=== PATIENT | female | born 1990 | race Two or more races ===

== ENCOUNTER 2016-09-19 13:26 | Emergency (ER) | payer OTHER ==
--- NOTE | 2016-09-19 14:09 | ER Document Report ---
ED Medical Screen (RME) - General Stated Complaint: BACK PAIN Time seen by provider: 14:08 Mode of Arrival: Ambulatory Information source: Patient Notes: 26-year-old female presents to ED for back pain with pain with urination foul smell to urine stasis most likely pneumonia. States his inguinal for a couple days. She also has some pelvic pain. Patient states she has a vaginal itch with no discharge. I have greeted and performed a rapid initial assessment of this patient. A comprehensive ED assessment and evaluation of the patient, analysis of test results and completion of medical decision making process will be conducted by an additional ED providers. TRAVEL OUTSIDE OF THE [place] IN LAST 30 DAYS: No - Related Data Allergies/Adverse Reactions: No Known Allergies Allergy (Verified 10/01/15 17:46) Past Medical History Past Surgical History: Reports: Hx Appendectomy - Immunizations Hx Diphtheria, Pertussis, Tetanus Vaccination: Yes
[2016-09-19] MEDS ORDERED: ACETAMINOPHEN 325 MG TABLET PO ONE (14:21)
[2016-09-19 15:08] LABS: APPEARANCE,URINE CLEAR; BILIRUBIN,URINE NEGATIVE (NEGATIVE); GLUCOSE, URINE NEGATIVE (NEGATIVE); KETONES,URINE NEGATIVE (NEGATIVE); LEUKOCYTE ESTERASE,URINE SMALL (NEGATIVE); NITRITE,URINE NEGATIVE (NEGATIVE); PROTEIN,URINE NEGATIVE (NEGATIVE); URINE SPECIFIC GRAVITY 1.015; UROBILINOGEN,URINE NEGATIVE mg/dL (<2.0)
[2016-09-19 16:38] LABS: CHLAM PCR NOT DETECTED (NOT DETECT)
--- NOTE | 2016-09-19 18:34 | ER Document Report ---
ED General - General Chief Complaint: Back Pain Stated Complaint: Dysuria Mode of Arrival: Ambulatory Notes: Patient is a 26-year-old female who presents with 2 days of vaginal itching, dysuria and suprapubic pain. She apparently complained of low back pain in triage but denies this complaint to me. States this feels similar when she's had urinary tract infections in the past. She has not seen her primary care doctor regarding today's concerns. Nothing improves or worsens her discomfort which she does describe as a constant, dull, throbbing pain in her vaginal area as well as her suprapubic region. Worsened with urination. Nothing improves the pain. She denies any associated constitutional symptoms or fever. TRAVEL OUTSIDE OF THE [place] IN LAST 30 DAYS: No - Related Data Allergies/Adverse Reactions: No Known Allergies Allergy (Verified 09/19/16 14:09) Past Medical History - General Information source: Patient - Social History Smoking Status: Never Smoker Chew tobacco use (# tins/day): No Frequency of alcohol use: None Drug Abuse: None Lives with: Spouse/Significant other Family History: Reviewed & Not Pertinent Patient has suicidal ideation: No Patient has homicidal ideation: No Renal/ Medical History: Denies: Hx Peritoneal Dialysis Past Surgical History: Reports: Hx Appendectomy - Immunizations Hx Diphtheria, Pertussis, Tetanus Vaccination: Yes Review of Systems - Review of Systems Notes: Constitutional: Negative for fever. HENT: Negative for sore throat. Eyes: Negative for visual changes. Cardiovascular: Negative for chest pain. Respiratory: Negative for shortness of breath. Gastrointestinal: Positive for abdominal pain, negative for vomiting or diarrhea. Genitourinary: Positive for dysuria. Musculoskeletal: Negative for back pain. Skin: Negative for rash. Neurological: Negative for headaches, weakness or numbness. 10 point ROS negative except as marked above and in HPI. Physical Exam - Vital signs Vitals: Temp Pulse Resp BP Pulse Ox 98.3 F 66 18 123/74 99 09/19/16 14:08 09/19/16 14:08 09/19/16 14:08 09/19/16 14:08 09/19/16 14:08 Interpretation: Normal Notes: PHYSICAL EXAMINATION: GENERAL: Well-appearing, well-nourished and in no acute distress. HEAD: Atraumatic, normocephalic. EYES: Pupils equal round and reactive to light, extraocular movements intact, sclera anicteric, conjunctiva are normal. ENT: nares patent, oropharynx clear without exudates. Moist mucous membranes. NECK: Normal range of motion, supple without lymphadenopathy LUNGS: Breath sounds clear to auscultation bilaterally and equal. No wheezes rales or rhonchi. HEART: Regular rate and rhythm without murmurs ABDOMEN: Soft, nontender, normoactive bowel sounds. No guarding, no rebound. No masses appreciated. EXTREMITIES: Normal range of motion, no pitting or edema. No cyanosis. NEUROLOGICAL: No focal neurological deficits. Moves all extremities spontaneously and on command. PSYCH: Normal mood, normal affect. SKIN: Warm, Dry, normal turgor, no rashes or lesions noted. Course - Re-evaluation Re-evalutation: 09/19/16 18:33 Patient presents with symptoms consistent with an acute cystitis. Vitals wnl. No history of fever, flank pain, or constitution symptoms to suggest ascending infection at this time. I'll patient complained of back pain in triage, she denies this complaint to me. Patient is well in appearance, tolerating oral intake without difficulty. No focal abdominal tenderness to suggest acute appendicitis, biliary pathology, acute pancreatitis, tubo-ovarian abscesses, or pelvic inflammatory disease. Patient will be started on antibiotics at this time. A culture has been sent. At this time will discharge with return precautions and follow-up recommendations. Verbal discharge instructions given a the bedside and opportunity for questions given. Medication warnings reviewed. Patient is in agreement with this plan and has verbalized understanding of return precautions and the need for primary care follow-up in the next 24-72 hours. - Vital Signs Vital signs: Temp Pulse Resp BP Pulse Ox 98.3 F 66 16 109/47 L 97 09/19/16 14:08 09/19/16 19:32 09/19/16 19:32 09/19/16 19:32 09/19/16 19:32 - Laboratory Laboratory results interpreted by me: 09/19/16 14:45 Ur Leukocyte Esterase SMALL H Discharge - Discharge Clinical Impression: UTI (urinary tract infection) Qualifiers: Urinary tract infection type: acute cystitis Hematuria presence: without hematuria Qualified Code(s): N30.00 - Acute cystitis without hematuria Condition: Good Disposition: HOME, SELF-CARE Additional Instructions: Your urine shows findings consistent with a urinary tract infection. Please take all the antibiotics as directed even if your symptoms have improved. Please follow-up with your primary care physician as needed. Return to emergency room if you develop fever >101F, persistent vomiting, become lethargic , have severe pain in your sides, or any other symptoms that are concerning to you. Prescriptions: Cephalexin Monohydrate [Keflex 500 mg Capsule] 500 mg PO QID #20 capsule Fluconazole [Diflucan] 150 mg PO ONCE PRN #1 tablet PRN Reason:
[2016-09-19 21:06] VITALS: BP 109/47
== END 2016-09-19 19:32 | disposition home or self-care (01) ==
LOC: ER 13:26
DX: N30.00 Acute cystitis without hematuria (principal); M54.9 Dorsalgia, unspecified; R30.0 Dysuria; R10.9 Unspecified abdominal pain; M54.5 Low back pain
CPT/HCPCS: 36415; 81001; 87086; 87088; 87186; 87491; 87591; 99283

== ENCOUNTER 2016-11-20 13:50 | Emergency (ER) | payer OTHER ==
--- NOTE | 2016-11-20 15:16 | ER Document Report ---
ED Medical Screen (RME) - General Chief Complaint: Vaginal Discharge Stated Complaint: VAGINAL DISCOMFORT Time Seen by Provider: 11/20/16 15:09 Notes: The patient is a 26-year-old female, , presents with vaginal spotting and pelvic cramping since her Implanon was placed 6 weeks ago at [facility]. Because of the spotting, she is having irritation from her pads around the vagina. She would also like to be tested for STDs and to have her Implanon removed today. PE: NAD. Abdomen soft and NT. I have greeted and performed a rapid initial assessment of this patient. A comprehensive ED assessment and evaluation of the patient, analysis of test results and completion of the medical decision making process will be conducted by additional ED providers. TRAVEL OUTSIDE OF THE [place] IN LAST 30 DAYS: No - Related Data Allergies/Adverse Reactions: No Known Allergies Allergy (Verified 11/20/16 14:09) Past Medical History Renal/ Medical History: Denies: Hx Peritoneal Dialysis Past Surgical History: Reports: Hx Appendectomy - Immunizations Hx Diphtheria, Pertussis, Tetanus Vaccination: Yes Physical Exam - Vital signs Vitals: Temp Pulse Resp BP Pulse Ox 98.0 F 76 16 111/71 100 11/20/16 14:08 11/20/16 14:08 11/20/16 14:08 11/20/16 14:08 11/20/16 14:08 Course - Vital Signs Vital signs: Temp Pulse Resp BP Pulse Ox 98.0 F 76 16 111/71 100 11/20/16 14:08 11/20/16 14:08 11/20/16 14:08 11/20/16 14:08 11/20/16 14:08
[2016-11-20 15:31] LABS: APPEARANCE,URINE CLEAR; BILIRUBIN,URINE NEGATIVE (NEGATIVE); GLUCOSE, URINE NEGATIVE (NEGATIVE); KETONES,URINE NEGATIVE (NEGATIVE); LEUKOCYTE ESTERASE,URINE NEGATIVE (NEGATIVE); NITRITE,URINE NEGATIVE (NEGATIVE); PROTEIN,URINE NEGATIVE (NEGATIVE); URINE SPECIFIC GRAVITY 1.008; UROBILINOGEN,URINE NEGATIVE mg/dL (<2.0)
[2016-11-20] MEDS ORDERED: IBUPROFEN 600 MG TABLET PO ONE (15:34)
--- NOTE | 2016-11-20 16:36 | ER Document Report ---
ED GI/ - General Mode of Arrival: Ambulatory Information source: Patient TRAVEL OUTSIDE OF THE [place] IN LAST 30 DAYS: No - HPI Patient complains to provider of: Vaginal pain Associated symptoms: Other - See above <MELVIN TAPIA - Last Filed: 11/20/16 17:51> <ROBERT ORTEGA - Last Filed: 11/20/16 21:59> - General Chief Complaint: Vaginal Pain Stated Complaint: VAGINAL DISCOMFORT Time Seen by Provider: 11/20/16 15:09 Notes: Patient is a 26 year old female who presents to the emergency department complaining of vaginal discomfort for the past 3 weeks. Patient also complains of itching, redness, and bumps to the area as well as spotting for the past month after having a nexplanon implanted. Patient reports she has been sexually active and has to wear panty liners because of the spotting. Patient also complains of abdominal cramps and lower back pain since the nexplanon as well as some burning with urination. Patient denies having cut herself shaving. PCP: Luis Fernando (MELVIN TAPIA) - Related Data Allergies/Adverse Reactions: No Known Allergies Allergy (Verified 11/20/16 14:09) Past Medical History - General Information source: Patient - Social History Smoking Status: Never Smoker Frequency of alcohol use: None Family History: Reviewed & Not Pertinent Patient has suicidal ideation: No Patient has homicidal ideation: No Renal/ Medical History: Denies: Hx Peritoneal Dialysis Past Surgical History: Reports: Hx Appendectomy - Immunizations Hx Diphtheria, Pertussis, Tetanus Vaccination: Yes <MELVIN TAPIA - Last Filed: 11/20/16 17:51> Review of Systems - Review of Systems Constitutional: No symptoms reported EENT: No symptoms reported Cardiovascular: No symptoms reported Respiratory: No symptoms reported Gastrointestinal: See HPI, Abdominal pain Genitourinary: See HPI, Burning Female Genitourinary: See HPI, Irregular period, Other - vaginal pain/discomfort Musculoskeletal: See HPI, Back pain Skin: No symptoms reported Hematologic/Lymphatic: No symptoms reported Neurological/Psychological: No symptoms reported -: Yes All other systems reviewed and negative <MELVIN TAPIA - Last Filed: 11/20/16 17:51> Physical Exam - Vital signs Interpretation: Normal - General General appearance: Appears well, Alert - HEENT Head: Normocephalic, Atraumatic - Respiratory Respiratory status: No respiratory distress - Abdominal Inspection: Normal Distension: No distension Bowel sounds: Normal Tenderness: Nontender Organomegaly: No organomegaly - Genitourinary External exam: Normal - but for some skin irritation on buttocks Speculum exam: Vaginal discharge - dark brown, no bright red blood - Extremities General upper extremity: Normal inspection General lower extremity: Normal inspection - Neurological Neuro grossly intact: Yes Cognition: Normal Orientation: AAOx4 [place] Coma Scale Eye Opening: Spontaneous [place] Coma Scale Verbal: Oriented [place] Coma Scale Motor: Obeys Commands Sar[place] Coma Scale Total: 15 Speech: Normal - Psychological Associated symptoms: Normal affect, Normal mood - Skin Skin Temperature: Warm Skin Moisture: Dry Skin Color: Normal <MELVIN TAPIA - Last Filed: 11/20/16 17:51> Course <MELVIN TAPIA - Last Filed: 11/20/16 17:51> - Diagnostic Test Radiology reviewed: Image reviewed, Reports reviewed <ROBERT ORTEGA - Last Filed: 11/20/16 21:59> - Re-evaluation Re-evalutation: 11/20/16 Patient with recent Nexplanon who comes in complaining of vaginal spotting. No evidence for STD on exam or by cultures. No acute findings on ultrasound. Patient will be discharged home and to follow up with her map drafter. Stable for discharge. Understands agrees with plan. (ROBERT ORTEGA) - Vital Signs Vital signs: Temp Pulse Resp BP Pulse Ox 98.2 F 56 L 20 112/70 100 11/20/16 20:27 11/20/16 20:27 11/20/16 20:27 11/20/16 20:27 11/20/16 20:27 Discharge <MELVIN TAPIA - Last Filed: 11/20/16 17:51> <ROBERT ORTEGA - Last Filed: 11/20/16 21:59> - Discharge Clinical Impression: Vaginal spotting Condition: Stable Disposition: HOME, SELF-CARE Instructions: Vaginal Bleeding ([facility]) Additional Instructions: Please follow-up with your DIGITAL PERFORMANCE ANALYST this week regarding her vaginal spotting. There is no evidence for vaginal infection or abnormality on your ultrasound at this time. Forms: Return to Work Scribe Attestation: 11/20/16 21:59 I personally performed the services described in the documentation, reviewed and edited the documentation which was dictated to the scribe in my presence, and it accurately records my words and actions. (ROBERT ORTEGA) Scribe Documentation - Scribe Written by Fantasma:: fantasma Bhagat, 11/20/16, 1503 acting as scribe for :: Beth <MELVIN TAPIA - Last Filed: 11/20/16 17:51>
[2016-11-20 18:24] LABS: CHLAM PCR NOT DETECTED (NOT DETECT)
[2016-11-20 20:33] VITALS: BP 112/70
== END 2016-11-20 20:27 | disposition home or self-care (01) ==
LOC: ER 13:50
DX: N93.9 Abnormal uterine and vaginal bleeding, unspecified (principal); R10.9 Unspecified abdominal pain; M54.5 Low back pain
CPT/HCPCS: 76856; 81001; 81025; 87210; 87491; 87591; 93976; 99284

== ENCOUNTER → 2017-10-23 | Outpatient (CLI) | payer OTHER ==
--- NOTE | 2017-10-23 11:31 | WOMENS IMAGING REPORT ---
EXAM DESCRIPTION: TRANSVAGINAL ULTRASOUND COMPLETED DATE/TIME: 10/23/2017 10:15 am REASON FOR STUDY: PELVIC PAIN R10.2 PELVIC AND PERINEAL PAIN COMPARISON: None. TECHNIQUE: Dynamic and static grayscale images acquired of the pelvis via transvaginal approach and recorded on PACS. Additional selected color Doppler and spectral images recorded. LIMITATIONS: None. FINDINGS: UTERUS: Contour normal. No mass. ENDOMETRIAL STRIPE: No focal or generalized thickening. No masses. CERVIX: Incidental tiny nabothian cyst. RIGHT ADNEXUM: No abnormal masses. RIGHT OVARY AND DOPPLER: Normal size. No worrisome masses.Normal arterial vascular flow without evide nce for torsion. LEFT ADNEXUM: No abnormal masses. LEFT OVARY AND DOPPLER: Normal size. No worrisome masses. Normal arterial vascular flow without evide nce for torsion. FREE FLUID: None noted. OTHER: No other significant finding. MEASUREMENTS: UTERUS: 9 x 5 x 5 cm ENDOMETRIAL STRIPE: 12 mm RIGHT OVARY: 5 x 2 x 3 cm LEFT OVARY: 4 x 2 x 2 cm IMPRESSION: NORMAL TRANSVAGINAL PELVIC ULTRASOUND. TECHNICAL DOCUMENTATION: JOB ID: [id number]- All Rights Reserved Reading location - IP/workstation name: [email or web address]
== END ==
LOC: WI 09:14
PROVIDERS: ATTEND Physician Assistant
DX: R10.2 Pelvic and perineal pain (principal)
CPT/HCPCS: 76830

== ENCOUNTER 2018-07-11 21:40 | Emergency (ER) | payer OTHER ==
[2018-07-11 21:52] VITALS: BP 109/79
--- NOTE | 2018-07-12 00:50 | ER Document Report ---
HPI - HPI Patient complains to provider of: Back pain Time Seen by Provider: 07/12/18 00:07 Pain Level: 5 Context: Patient is a 28-year-old female presents to the emergency department complaining of generalized thoracic and cervical back pain which started around Thanksgiving. Patient states she is unsure of any sort of injury or trauma to her back but states the pain has increased over the last couple of days and she is unable to sleep. Patient denies any urinary symptoms to include loss of bowel or bladder or urinary retention. Patient denies any numbness or tingling in any of her extremity. Past medical history: None Medications: None Allergies: None Last menstrual period June 23 - REPRODUCTIVE Reproductive: DENIES: : Past Medical History - General Information source: Patient - Social History Smoking Status: Unknown if Ever Smoked Family History: Reviewed & Not Pertinent Renal/ Medical History: Denies: Hx Peritoneal Dialysis Past Surgical History: Reports: Hx Appendectomy - Immunizations Hx Diphtheria, Pertussis, Tetanus Vaccination: Yes Vertical Provider Document - CONSTITUTIONAL Agree With Documented VS: Yes Notes: GENERAL: Alert, interacts well. No acute distress. HEAD: Normocephalic, atraumatic. EYES: Pupils equal, round, and reactive to light. Extraocular movements intact. ENT: Oral mucosa moist, tongue midline. NECK: Full range of motion. Supple. Trachea midline. Patient does admit to cervical spine midline tenderness as well as paraspinal tenderness. Patient refuses c-collar at this time LUNGS: Clear to auscultation bilaterally, no wheezes, rales, or rhonchi. No respiratory distress. HEART: Regular rate and rhythm. No murmur ABDOMEN: Soft, non-tender. Non-distended. Bowel sounds present in all 4 quadrants. EXTREMITIES: Moves all 4 extremities spontaneously. No edema, normal radial and dorsalis pedis pulses bilaterally. No cyanosis. 5 out of 5 strength all 4 extremities BACK: no lumbar midline tenderness. No saddle anesthesia, normal distal neurovascular exam. Patient does admit to thoracic midline spinal as well as paraspinal thoracic tenderness. NEUROLOGICAL: Alert and oriented x3. Normal speech. cranial nerves II through XII grossly intact. PSYCH: Normal affect, normal mood. SKIN: Warm, dry, normal turgor. No rashes or lesions noted. - INFECTION CONTROL TRAVEL OUTSIDE OF THE [place] IN LAST 30 DAYS: No Course - Re-evaluation Re-evalutation: 07/12/18 02:18 Patient's thoracic x-ray revealed no signs of fracture or abnormal. Patient's cervical CT did reveal slight reversal of the normal cervical lordosis which may reflect muscle spasm or strain, otherwise unremarkable. Discussed use of heat and Flexeril with patient at bedside. Patient voices understanding, stable for discharge This medical record was dictated with voice recognizing software. There may be grammatical, syntax errors that are unintended. 07/12/18 02:29 Patient states that treatments in the emergency room have only helped her pain a little bit. Patient is eating [employer] in the room in no obvious distress, looking around the room. Discussed following up with primary care provider for an MRI. Patient voices understanding. Stable for discharge. - Vital Signs Vital signs: Temp Pulse Resp BP Pulse Ox 98.2 F 72 17 109/79 100 07/11/18 21:50 07/11/18 21:50 07/11/18 21:50 07/11/18 21:50 07/11/18 21:50 Discharge - Discharge Clinical Impression: Cervical pain (neck) Thoracic back pain Qualifiers: Chronicity: acute Back pain laterality: bilateral Qualified Code(s): M54.6 - Pain in thoracic spine Condition: Stable Disposition: HOME, SELF-CARE Instructions: Muscle Strain ([facility]), Neck Injury (Cervical Strain) ([facility]), Pain Medication Injection ([facility]), Warm Packs ([facility]) Additional Instructions: As we discussed you have been seen and treated in the emergency department for back pain. Your x-rays revealed no signs of tears at this time. You should continue taking [id number] Tylenol and Motrin and prescription Flexeril. Please also buy [id number] Lidoderm patches. Please use moist heat to help with your discomfort. Please follow-up with your primary care provider to inevitably get an MRI of your spine. Please return to the emergency room for any other concerning symptoms. Prescriptions: Cyclobenzaprine HCl [Flexeril 10 mg Tablet] 10 mg PO TIDP PRN #15 tab PRN Reason: Referrals: ROBERT BONDS PA [Primary Care Provider] - Follow up as needed
[2018-07-12] MEDS ORDERED: LIDOCAINE 5% (700 MG) TRANSDERMAL ADH..PATCH TP ONE (01:12)
[2018-07-12] MEDS ORDERED: CYCLOBENZAPRINE HCL 10 MG TABLET PO ONE (01:12)
[2018-07-12] MEDS ORDERED: KETOROLAC TROMETHAMINE 60 MG/2 ML SDV IM ONE (01:12)
--- NOTE | 2018-07-12 02:11 | RADIOLOGY REPORT (SQ) ---
EXAM DESCRIPTION: CT CERVICAL SPINE WITHOUT IV CONTRAST COMPLETED DATE/TME: 07/12/2018 00:36 CLINICAL HISTORY: 28 years, Female, pain COMPARISON: None. TECHNIQUE: 242 Images stored on PACS. All CT scanners at this facility use dose modulation, iterative reconstruction, and/or weight based dosing when appropriate to reduce radiation dose to as low as reasonably achievable (ALARA). [facility]: Dose Right [facility]: CareDose [facility]: Dose Right [facility]: Teradose 4D [facility]: [employer] LIMITATIONS: None. FINDINGS: Slight reversal of the normal cervical lordosis which may reflect muscle spasm/strain. However, vertebral body height and alignment is otherwise preserved. The disc spaces are maintained. Surrounding soft tissues are unremarkable. IMPRESSION: Slight reversal of the normal cervical lordosis which may reflect muscle spasm/strain. Otherwise, unremarkable exam. TECHNICAL DOCUMENTATION: Quality ID # [id number]: Final reports with documentation of one or more dose reduction techniques (e.g., Automated exposure control, adjustment of the mA and/or kV according to patient size, use of iterative reconstruction technique) copyright 2010 [employer]- All Rights Reserved
--- NOTE | 2018-07-12 02:13 | RADIOLOGY REPORT (SQ) ---
EXAM DESCRIPTION: XR THORACIC SPINE 2 VIEWS COMPLETED DATE/TME: 07/12/2018 00:36 CLINICAL HISTORY: 28 years, Female, pain COMPARISON: None. NUMBER OF VIEWS: 2 TECHNIQUE: 2 view thoracic spine LIMITATIONS: None. FINDINGS: Vertebral body height and alignment is preserved. The disc spaces are maintained IMPRESSION: Negative exam copyright 2010 [employer]- All Rights Reserved
== END 2018-07-12 02:35 | disposition home or self-care (01) ==
LOC: ER 21:40
DX: M54.6 Pain in thoracic spine (principal); M54.2 Cervicalgia
CPT/HCPCS: 99284; 96372; 81025; 72070; 72125; J1885

== ENCOUNTER 2018-11-04 15:38 | Emergency (ER) | payer OTHER ==
[2018-11-04] MEDS ORDERED: NORMAL SALINE 1000 ML 1,000 ML IV ONE (16:19)
--- NOTE | 2018-11-04 16:21 | ER Document Report ---
ED Medical Screen (RME) - General Chief Complaint: Vag Bleeding, +preg <12wks Stated Complaint: VAGINAL BLEEDING/BACK PAIN Time Seen by Provider: 11/04/18 16:17 Primary Care Provider: CELINA DE LA ROSA MD [Primary Care Provider] - Follow up as needed Notes: Patient is a 28-year-old -[place] female who presents today with severe low back pain and vaginal bleeding. She has a gram of 5 para 3 and believes she is about 6 weeks 5 days along based on an ultrasound she had here last week. She woke with low back pain today and started having bleeding which she describes as slightly more than spotting but definitely less than menses. No active uterine contractions. Her blood type is O+ and this was confirmed against previous records from the blood bank in this hospital. I have treated and performed a rapid initial assessment of this patient. A comprehensive ED assessment and evaluation of the patient, analysis of test results and completion of medical decision making process will be conducted by additional ED providers. PHYSICAL EXAMINATION: GENERAL: Well-appearing, well-nourished and in no acute distress. A&Ox4. Answers questions appropriately. LUNGS: Breath sounds clear to auscultation bilaterally and equal. No wheezes rales or rhonchi. HEART: Regular rate and rhythm without murmurs, rubs, gallops. ABDOMEN: Soft, nondistended abdomen. Extremities: No cyanosis, clubbing, or edema b/l. NEUROLOGICAL: Normal speech, normal gait. PSYCH: Normal mood, normal affect. TRAVEL OUTSIDE OF THE [place] IN LAST 30 DAYS: No - Related Data Allergies/Adverse Reactions: No Known Allergies Allergy (Verified 11/04/18 15:40) Past Medical History Renal/ Medical History: Denies: Hx Peritoneal Dialysis Past Surgical History: Reports: Hx Appendectomy - Immunizations Hx Diphtheria, Pertussis, Tetanus Vaccination: Yes Physical Exam - Vital signs Vitals: Temp Pulse Resp BP Pulse Ox 98.6 F 66 16 113/67 100 11/04/18 15:46 11/04/18 15:46 11/04/18 15:46 11/04/18 15:46 11/04/18 15:46 Course - Vital Signs Vital signs: Temp Pulse Resp BP Pulse Ox 98.6 F 66 16 113/67 100 11/04/18 15:46 11/04/18 15:46 11/04/18 15:46 11/04/18 15:46 11/04/18 15:46 Doctor's Discharge - Discharge Referrals: CELINA DE LA ROSA MD [Primary Care Provider] - Follow up as needed
[2018-11-04 16:52] LABS: ABSOLUTE BASOPHILS # (AUTO) 0.1 10^3/uL (0.0-0.2); ABSOLUTE EOSINOPHILS # (AUTO) 0.1 10^3/uL (0.0-0.6); ABSOLUTE LYMPHOCYTES (AUTO) 2.1 10^3/uL (0.5-4.7); ABSOLUTE MONOCYTES (AUTO) 0.7 10^3/uL (0.1-1.4); ABSOLUTE NEUT (AUTO) 4.2 10^3/uL (1.7-8.2); BASOPHILS % (AUTO) 0.7 % (0-2); HEMOGLOBIN 11.6 g/dL (12.0-15.5); LYMPHOCYTES % (AUTO) 28.5 % (13-45); MEAN CORPUSCULAR HEMOGLOBIN 27.5 pg (27.0-33.4); MEAN CORPUSCULAR HGB CONC 32.2 g/dL (32.0-36.0); MEAN CORPUSCULAR VOLUME 85 fl (80-97); PLATELET COUNT 396 10^3/uL (150-450); RED BLOOD COUNT 4.22 10^6/uL (3.72-5.28); RED CELL DISTRIBUTION WIDTH 14.8 % (11.5-14.0); SEGMENTED NEUTROPHILS % (AUTO) 58.8 % (42-78); TOTAL CELLS COUNTED % (AUTO) 100 %; WHITE BLOOD COUNT 7.2 10^3/uL (4.0-10.5)
[2018-11-04 17:08] LABS: ALANINE AMINOTRANSFERASE 27 U/L (9-52); ALBUMIN 4.1 g/dL (3.5-5.0); ALKALINE PHOSPHATASE 48 U/L (38-126); ANION GAP 11 (5-19); ASPARTATE AMINO TRANSFERASE 23 U/L (14-36); BILIRUBIN,DIRECT 0.2 mg/dL (0.0-0.4); BILIRUBIN,TOTAL 0.3 mg/dL (0.2-1.3); BLOOD UREA NITROGEN 12 mg/dL (7-20); CALCIUM 9.4 mg/dL (8.4-10.2); CARBON DIOXIDE 26 mmol/L (22-30); CHLORIDE 104 mmol/L (98-107); GLUCOSE 90 mg/dL (75-110); SODIUM 140.6 mmol/L (137-145); TOTAL PROTEIN 7.6 g/dL (6.3-8.2)
--- NOTE | 2018-11-04 17:31 | RADIOLOGY REPORT (SQ) ---
EXAM DESCRIPTION: U/S OB TRANSVAG W/DOPPLER COMPLETED DATE/TIME: 11/04/2018 4:57 pm REASON FOR STUDY: SEVERE LBP AND VAG BLEED. 6-7 WKS GEST. COMPARISON: 10/20/2018 TECHNIQUE: Transvaginal static and realtime grayscale images acquired of the pelvis. Additional wanda cted spectral and color Doppler images recorded. All images stored on PACs. bHCG: Pending. CLINICAL DATES: 7 weeks 2 days LIMITATIONS: None. FINDINGS: FETUS: Single Living intrauterine . Yolk sac identified. ULTRASOUND EGA: 6 week 1 day ULTRASOUND STAR: 06/29/2019 EFW: Not applicable less than 20 weeks. CRL: 4 mm FHR: 108 beats per minute. SURVEY: No visualized anomalies. AMNIOTIC FLUID: Adequate amount. PLACENTA: Not yet developed due to early gestation. SUBCHORIONIC BLEED: No SIZE OF BLEED: Not applicable. UTERUS: No masses. No anomalies. CERVICAL LENGTH: 2.9 cm Closed. RIGHT ADNEXA: Normal ovary with normal vascular flow. No adnexal free fluid. No adnexal masses. LEFT ADNEXA: Normal ovary with normal vascular flow. No adnexal free fluid. No adnexal masses. FREE FLUID: None. OTHER: No other significant finding. IMPRESSION: LIVING INTRAUTERINE . EGA 6 weeks 1 day Trimester of : First - 0 to 13 weeks. TECHNICAL DOCUMENTATION: JOB ID: [id number] [id number] 2010 [employer]- All Rights Reserved Reading location - IP/workstation name: [email or web address]
--- NOTE | 2018-11-04 18:57 | ER Document Report ---
ED General - General Chief Complaint: Vag Bleeding, +preg <12wks Stated Complaint: VAGINAL BLEEDING/BACK PAIN Time Seen by Provider: 11/04/18 16:17 Primary Care Provider: CELINA DE LA ROSA MD [Primary Care Provider] - Follow up as needed Notes: 28-year-old -F[place] female who presents today with severe low back pain and vaginal bleeding. She has a and believes she is about 6 weeks 5 days along based on an ultrasound she had here last week. She woke with low back pain today and started having bleeding which she describes as slightly more than spotting but definitely less than menses. No active uterine contractions. Her blood type is O+ and this was confirmed against previous records from the blood bank in this hospital. She denies any current bleeding, does have some mild lower back pain, denies fevers or chills, shortness of breath or chest pain, denies urinary symptoms. No other complaints TRAVEL OUTSIDE OF THE [place] IN LAST 30 DAYS: No - Related Data Allergies/Adverse Reactions: No Known Allergies Allergy (Verified 11/04/18 15:40) Past Medical History - General Last Menstrual Period: 09/14/18 - Social History Smoking Status: Never Smoker Frequency of alcohol use: None Drug Abuse: None Family History: Reviewed & Not Pertinent Patient has suicidal ideation: No Patient has homicidal ideation: No Renal/ Medical History: Denies: Hx Peritoneal Dialysis Past Surgical History: Reports: Hx Appendectomy - Immunizations Hx Diphtheria, Pertussis, Tetanus Vaccination: Yes Review of Systems - Review of Systems Constitutional: See HPI Cardiovascular: See HPI Respiratory: See HPI Gastrointestinal: See HPI Genitourinary: See HPI Female Genitourinary: See HPI Physical Exam - Vital signs Vitals: Temp Pulse Resp BP Pulse Ox 98.6 F 66 16 113/67 100 11/04/18 15:46 11/04/18 15:46 11/04/18 15:46 11/04/18 15:46 11/04/18 15:46 - Notes Notes: PHYSICAL EXAMINATION: Reviewed vital signs and charting by RN GENERAL: Alert, interacts well. No acute distress. HEAD: Normocephalic, atraumatic. EYES: Pupils equal and round. Extraocular movements intact. ENT: Oral mucosa moist, tongue midline. NECK: Full range of motion. Supple. Trachea midline. LUNGS: Clear to auscultation bilaterally, no wheezes, rales, or rhonchi. No respiratory distress. HEART: Regular rate and rhythm. No murmur ABDOMEN: soft, suprapubic tenderness. Non-distended. Bowel sounds present. no McBurney's point tenderness, no Hernandez sign. EXTREMITIES: Moves all 4 extremities spontaneously. No edema, No cyanosis. Normal distal neurovascular exam BACK: No CVAT NEUROLOGIC: Oriented and appropriate. Normal speech. PSYCH: Normal affect, normal mood. SKIN: Warm, dry, normal turgor. No rashes or lesions noted. Course - Re-evaluation Re-evalutation: 11/04/18 18:59 A transvaginal ultrasound with Doppler showed a live intrauterine dated at 6 weeks 1 day. No subchorionic bleed. I explained to patient that vaginal bleeding is very common in early . She is waiting for approval and will be seeing [facility]. I gave her strict return precautions. She is stable for discharge. - Vital Signs Vital signs: Temp Pulse Resp BP Pulse Ox 98.6 F 66 16 113/67 100 11/04/18 15:46 11/04/18 15:46 11/04/18 15:46 11/04/18 15:46 11/04/18 15:46 - Laboratory Result Diagrams: 11/04/18 16:30 11/04/18 16:30 Laboratory results interpreted by me: 11/04/18 11/04/18 16:30 16:30 Hgb 11.6 L RDW 14.8 H Beta HCG, Quant 6247.40 H Discharge - Discharge Clinical Impression: Vaginal bleeding during Disposition: HOME, SELF-CARE Additional Instructions: Your ultrasound today shows a living intrauterine . 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 Please return if you develop severe abdominal pain, bleeding that goes through more than 2 pads for more than 2 hours, pass out, or have any other symptoms that are concerning to you. Please follow-up closely with your OBGYN regarding todays visit. Referrals: CELINA DE LA ROSA MD [Primary Care Provider] - Follow up as needed
[2018-11-04 19:09] VITALS: BP 113/71
[2018-11-04 19:25] LABS: APPEARANCE,URINE CLEAR; BILIRUBIN,URINE NEGATIVE (NEGATIVE); COLOR,URINE STRAW; GLUCOSE, URINE NEGATIVE (NEGATIVE); KETONES,URINE NEGATIVE (NEGATIVE); LEUKOCYTE ESTERASE,URINE NEGATIVE (NEGATIVE); NITRITE,URINE NEGATIVE (NEGATIVE); PROTEIN,URINE NEGATIVE (NEGATIVE); URINE SPECIFIC GRAVITY 1.013; UROBILINOGEN,URINE NEGATIVE mg/dL (<2.0)
[2018-11-04 20:59] LABS: CHLAM PCR NOT DETECTED (NOT DETECT); GON PCR NOT DETECTED (NOT DETECT)
== END 2018-11-04 19:09 | disposition home or self-care (01) ==
LOC: ER 15:38
DX: O46.91 Antepartum hemorrhage, unspecified, first trimester (principal); M54.5 Low back pain; Z3A.01 Less than 8 weeks gestation of pregnancy
CPT/HCPCS: 99284; 96360; 36415; 84702; 85025; 80053; 81001; 87491; 87591; 76817; 93976; J7030

== ENCOUNTER 2018-11-06 21:37 | Emergency (ER) | payer OTHER ==
[2018-11-07] MEDS ORDERED: ACETAMINOPHEN 325 MG TABLET PO ONE (00:12)
--- NOTE | 2018-11-07 00:13 | ER Document Report ---
ED Medical Screen (RME) - General Chief Complaint: OB Problem (<20wks) Stated Complaint: VAGINAL ISSUES Time Seen by Provider: 11/07/18 00:10 Primary Care Provider: CELINA DE LA ROSA MD [Primary Care Provider] - Follow up as needed Notes: 28-year-old female, at 6 weeks gestation by first trimester ultrasound, chief complaint of lower abdominal pain that is sharp and heavier bleeding. She has gone through 3 panty liners. Seen here recently reportedly and had ultrasound showing intrauterine but she states she has significantly worsened with much more cramping and heavier bleeding since that time. Denies injury. Denies vomiting or fever. TRAVEL OUTSIDE OF THE [place] IN LAST 30 DAYS: No - Related Data Allergies/Adverse Reactions: No Known Allergies Allergy (Verified 11/04/18 15:40) Past Medical History Renal/ Medical History: Denies: Hx Peritoneal Dialysis Past Surgical History: Reports: Hx Appendectomy - Immunizations Hx Diphtheria, Pertussis, Tetanus Vaccination: Yes Physical Exam - Vital signs Vitals: Temp Pulse Resp BP Pulse Ox 98.2 F 62 16 107/78 100 11/06/18 22:33 11/06/18 22:33 11/06/18 22:33 11/06/18 22:33 11/06/18 22:33 - General General appearance: Appears well In distress: None - Abdominal Tenderness: Tender - General lower, no guarding Course - Re-evaluation Re-evalutation: I have greeted and performed a rapid initial assessment of this patient. A comprehensive ED assessment and evaluation of the patient, analysis of test results and completion of the medical decision making process will be conducted by additional ED providers. - Vital Signs Vital signs: Temp Pulse Resp BP Pulse Ox 98.2 F 62 16 107/78 100 11/06/18 22:33 11/06/18 22:33 11/06/18 22:33 11/06/18 22:33 11/06/18 22:33 Doctor's Discharge - Discharge Referrals: CELINA DE LA ROSA MD [Primary Care Provider] - Follow up as needed
[2018-11-07 01:15] LABS: ABSOLUTE EOSINOPHILS # (AUTO) 0.1 10^3/uL (0.0-0.6); ABSOLUTE LYMPHOCYTES (AUTO) 2.1 10^3/uL (0.5-4.7); ABSOLUTE MONOCYTES (AUTO) 0.8 10^3/uL (0.1-1.4); ABSOLUTE NEUT (AUTO) 4.5 10^3/uL (1.7-8.2); BASOPHILS % (AUTO) 0.6 % (0-2); EOSINOPHILS % (AUTO) 1.5 % (0-6); HEMATOCRIT 35.1 % (36.0-47.0); HEMOGLOBIN 11.3 g/dL (12.0-15.5); LYMPHOCYTES % (AUTO) 27.9 % (13-45); MEAN CORPUSCULAR HEMOGLOBIN 27.5 pg (27.0-33.4); MEAN CORPUSCULAR HGB CONC 32.3 g/dL (32.0-36.0); MEAN CORPUSCULAR VOLUME 85 fl (80-97); MONOCYTES % (AUTO) 10.1 % (3-13); PLATELET COUNT 386 10^3/uL (150-450); RED BLOOD COUNT 4.12 10^6/uL (3.72-5.28); RED CELL DISTRIBUTION WIDTH 14.8 % (11.5-14.0); SEGMENTED NEUTROPHILS % (AUTO) 59.9 % (42-78); TOTAL CELLS COUNTED % (AUTO) 100 %; WHITE BLOOD COUNT 7.5 10^3/uL (4.0-10.5)
[2018-11-07 01:40] LABS: ANION GAP 12 (5-19); BLOOD UREA NITROGEN 12 mg/dL (7-20); CALCIUM 9.7 mg/dL (8.4-10.2); CARBON DIOXIDE 26 mmol/L (22-30); CHLORIDE 102 mmol/L (98-107); GLUCOSE 119 mg/dL (75-110); POTASSIUM 3.5 mmol/L (3.6-5.0); SODIUM 139.8 mmol/L (137-145)
--- NOTE | 2018-11-07 01:56 | RADIOLOGY REPORT (SQ) ---
EXAM DESCRIPTION: [facility]: US TRANSVAGINAL CLINICAL HISTORY: 28 years Female; increased pain, heavy bleeding TECHNIQUE: Endovaginal pelvic ultrasound was performed. COMPARISON: None. FINDINGS: Uterus: 9.1 x 5.7 x 4.6 cm. In the anterior lower myometrium, there is a slightly heterogeneous area 8 mm in diameter, likely fibroid. In the uterine fundus, there is a gestational sac. pole is identified, CRL 0.2 cm, 6 weeks 1 day heart rate 108 bpm Yolk sac 4 mm. Cervix 3 cm, closed No adjacent hematoma. Right ovary: Not identified due to bowel gas. Left ovary: Not identified due to bowel gas. No free fluid IMPRESSION: 1. Single viable IUP, EGA 6 weeks 4 days, STAR 06/29/2019. No subchorionic hemorrhage. 2. There is an 8 mm lesion in the anterior lower uterine segment, likely fibroid. This could potentially be the source of bleeding.
--- NOTE | 2018-11-07 03:46 | ER Document Report ---
ED General - General Chief Complaint: OB Problem (<20wks) Stated Complaint: VAGINAL ISSUES Time Seen by Provider: 11/07/18 00:10 Primary Care Provider: CELINA DE LA ROSA MD [Primary Care Provider] - Follow up as needed Notes: Patient is a 28-year-old female presents with complaint of vaginal bleeding and . She is approximately 6 weeks . This is her fifth . She has 3 live children at home and had one miscarriage in the past. She is had some cramping and vaginal bleeding today. She is passing some clots. No fevers. No vomiting. No diarrhea. No other complaints at this time. No tra chris. TRAVEL OUTSIDE OF THE [place] IN LAST 30 DAYS: No - Related Data Allergies/Adverse Reactions: No Known Allergies Allergy (Verified 11/04/18 15:40) Past Medical History - Social History Smoking Status: Never Smoker Frequency of alcohol use: None Drug Abuse: None Family History: Reviewed & Not Pertinent Renal/ Medical History: Denies: Hx Peritoneal Dialysis Past Surgical History: Reports: Hx Appendectomy - Immunizations Hx Diphtheria, Pertussis, Tetanus Vaccination: Yes Review of Systems - Review of Systems Notes: My Normal Review Basic REVIEW OF SYSTEMS: CONSTITUTIONAL : Denies fever, chills, or sweats. Denies recent illness. RESPIRATORY: Denies cough, cold, or chest congestion. Denies shortness of breath, difficulty breathing, or wheezing. GASTROINTESTINAL: Lower abdominal pain. GENITOURINARY: Denies difficulty urinating, painful urination, burning, frequency, or blood in urine. FEMALE GENITOURINARY: Vaginal bleeding in . MUSCULOSKELETAL: Denies neck or back pain or joint pain or swelling. SKIN: Denies rash or skin lesions. HEMATOLOGIC : Denies easy bruising or bleeding. NEUROLOGICAL: Denies altered mental status or loss of consciousness. Denies headache. Denies weakness or paralysis or loss of use of either side. Denies problems with gait or speech. Denies sensory or motor loss. ALL OTHER SYSTEMS REVIEWED AND NEGATIVE. Physical Exam - Vital signs Vitals: Temp Pulse Resp BP Pulse Ox 98.2 F 62 16 107/78 100 11/06/18 22:33 11/06/18 22:33 11/06/18 22:33 11/06/18 22:33 11/06/18 22:33 - Notes Notes: General Appearance: Well nourished, alert, cooperative, no acute distress, no obvious discomfort. Vitals: reviewed, See vital signs table. Eyes: PERRL, EOMI, Conjuctiva clear Abdomen: Normal BS, soft, No rigidity, mild suprapubic abdominal tenderness to palpation., No guarding, no rebound, no abdominal masses, no organomegaly Extremities: good pulses in all extremities, no edema. Skin: warm, dry, appropriate color Neuro: speech clear, oriented x 3, normal affect, responds appropriately to questions. Course - Vital Signs Vital signs: Temp Pulse Resp BP Pulse Ox 98.3 F 77 18 110/70 100 11/07/18 03:03 11/07/18 03:03 11/07/18 03:03 11/07/18 03:03 11/07/18 03:03 - Laboratory Result Diagrams: 11/07/18 00:45 11/07/18 00:45 Laboratory results interpreted by me: 11/07/18 11/07/18 00:45 00:45 Hgb 11.3 L Hct 35.1 L RDW 14.8 H Potassium 3.5 L Glucose 119 H Beta HCG, Quant 6586.20 H Discharge - Discharge Clinical Impression: Vaginal bleeding during Uterine fibroid Qualifiers: Uterine leiomyoma location: unspecified location Qualified Code(s): D25.9 - Leiomyoma of uterus, unspecified Condition: Good Disposition: HOME, SELF-CARE Additional Instructions: Your ultrasound showed that your baby was in the uterus and does not show any complications at this time. You do have a fibroid in your uterus which the r adiologist suspects may be causing your bleeding. Fibroids are knots of muscle in the uterus that sometimes bleed. Currently the treatment is rest. Please do not overexert yourself. Do not lift any thing heavy. No sexual activity for at least a week or until your bleeding stops. Please follow-up with your OB physician within the next week. Please have a low threshold to return to the ER if you have heavier bleeding, severe pain, lightheadedness, dizziness, shortness of breath, or if you feel that you are worsening in any way. Please continue take vitamins. Take Tylenol for pain.
[2018-11-07 04:55] VITALS: BP 112/68
== END 2018-11-07 04:55 | disposition home or self-care (01) ==
LOC: ER 21:37
DX: O20.9 Hemorrhage in early pregnancy, unspecified (principal); O34.11 Maternal care for benign tumor of corpus uteri, first trimester; D25.9 Leiomyoma of uterus, unspecified; Z3A.01 Less than 8 weeks gestation of pregnancy
CPT/HCPCS: 36415; 76817; 80048; 84702; 85025; 86900; 86901; 93976; 99284

== ENCOUNTER 2020-04-19 13:59 | Emergency (ER) | payer OTHER ==
--- NOTE | 2020-04-19 14:16 | ER Document Report ---
ED Medical Screen (RME) - General Chief Complaint: Abdominal Pain Stated Complaint: ABDOMINAL/PELVIC PAIN Time Seen by Provider: 04/19/20 14:12 Primary Care Provider: CELINA DE LA ROSA MD [Primary Care Provider] - Follow up as needed Mode of Arrival: Ambulatory Information source: Patient Notes: 30-year-old female presents to ED for right pelvic pain times a week. She states it radiates to the right leg. She states she has some nausea but no vomiting no fever. She does not have an appendix. She states she does have a history of back pain when she had a UTI but not pain in this area. Last menstrual period was March 28. She does not smoke drink or use any l illicit drugs. We will get blood urine and transvaginal ultrasound. I have greeted and performed a rapid initial assessment of this patient. A comprehensive ED assessment and evaluation of the patient, analysis of test results and completion of medical decision making process will be conducted by an additional ED providers. TRAVEL OUTSIDE OF THE [place] IN LAST 30 DAYS: No - Related Data Allergies/Adverse Reactions: No Known Allergies Allergy (Verified 04/19/20 14:11) Past Medical History Renal/ Medical History: Denies: Hx Peritoneal Dialysis Past Surgical History: Reports: Hx Appendectomy - Immunizations Hx Diphtheria, Pertussis, Tetanus Vaccination: Yes Physical Exam - Vital signs Vitals: Temp Pulse Resp BP Pulse Ox 98.2 F 83 20 121/74 99 04/19/20 14:05 04/19/20 14:05 04/19/20 14:05 04/19/20 14:05 04/19/20 14:05 Course - Vital Signs Vital signs: Temp Pulse Resp BP Pulse Ox 98.2 F 83 20 121/74 99 04/19/20 14:05 04/19/20 14:05 04/19/20 14:05 04/19/20 14:05 04/19/20 14:05 Doctor's Discharge - Discharge Referrals: CELIAN DE LA ROSA MD [Primary Care Provider] - Follow up as needed
[2020-04-19 14:57] LABS: ABSOLUTE EOSINOPHILS # (AUTO) 0.1 10^3/uL (0.0-0.6); ABSOLUTE LYMPHOCYTES (AUTO) 1.8 10^3/uL (0.5-4.7); ABSOLUTE MONOCYTES (AUTO) 0.6 10^3/uL (0.1-1.4); BASOPHILS % (AUTO) 0.4 % (0-2); HEMATOCRIT 40.7 % (36.0-47.0); HEMOGLOBIN 13.9 g/dL (12.0-15.5); LYMPHOCYTES % (AUTO) 21.2 % (13-45); MEAN CORPUSCULAR HEMOGLOBIN 31.6 pg (27.0-33.4); MEAN CORPUSCULAR HGB CONC 34.2 g/dL (32.0-36.0); MEAN CORPUSCULAR VOLUME 92 fl (80-97); MONOCYTES % (AUTO) 6.9 % (3-13); PLATELET COUNT 319 10^3/uL (150-450); RED BLOOD COUNT 4.41 10^6/uL (3.72-5.28); RED CELL DISTRIBUTION WIDTH 13.5 % (11.5-14.0); SEGMENTED NEUTROPHILS % (AUTO) 70.5 % (42-78); TOTAL CELLS COUNTED % (AUTO) 100 %; WHITE BLOOD COUNT 8.6 10^3/uL (4.0-10.5)
[2020-04-19 15:00] LABS: APPEARANCE,URINE CLEAR; BILIRUBIN,URINE NEGATIVE (NEGATIVE); COLOR,URINE STRAW; GLUCOSE, URINE NEGATIVE (NEGATIVE); KETONES,URINE NEGATIVE (NEGATIVE); LEUKOCYTE ESTERASE,URINE NEGATIVE (NEGATIVE); NITRITE,URINE NEGATIVE (NEGATIVE); PROTEIN,URINE NEGATIVE (NEGATIVE); URINE SPECIFIC GRAVITY 1.008; UROBILINOGEN,URINE NEGATIVE mg/dL (<2.0)
--- NOTE | 2020-04-19 15:04 | RADIOLOGY REPORT (SQ) ---
EXAM DESCRIPTION: U/S NON-OB PELVIS TV W/O DOP IMAGES COMPLETED DATE/TIME: 04/19/2020 2:55 pm REASON FOR STUDY: Right pelvic pain radiates down the leg COMPARISON: None. TECHNIQUE: Dynamic and static grayscale images acquired of the pelvis via transvaginal approach and recorded on PACS. Additional selected color Doppler and spectral images recorded. LIMITATIONS: None. FINDINGS: UTERUS: Contour normal. No mass. ENDOMETRIAL STRIPE: No focal or generalized thickening. No masses. CERVIX: No nabothian cysts. RIGHT OVARY AND DOPPLER: Normal size. No worrisome masses. Normal arterial vascular flow without evid ence for torsion. LEFT OVARY AND DOPPLER: Normal size. No worrisome masses. Normal arterial vascular flow without evide nce for torsion. FREE FLUID: None noted. OTHER: No other significant finding. MEASUREMENTS: UTERUS: 8.6 x 4.3 x 4.9 cm ENDOMETRIAL STRIPE: 1.4 cm RIGHT OVARY: 2.8 x 1.8 x 1.9 cm LEFT OVARY: 3.8 x 1.3 x 1.7 cm IMPRESSION: NORMAL TRANSVAGINAL PELVIC ULTRASOUND. TECHNICAL DOCUMENTATION: JOB ID: [id number] 2010 [employer]- All Rights Reserved Rev-11/17 Reading location - IP/workstation name: [email or web address]
[2020-04-19 15:16] LABS: ALBUMIN 4.4 g/dL (3.5-5.0); ALKALINE PHOSPHATASE 53 U/L (38-126); ANION GAP 11 (5-19); ASPARTATE AMINO TRANSFERASE 24 U/L (14-36); BILIRUBIN,DIRECT 0.2 mg/dL (0.0-0.4); BILIRUBIN,TOTAL 0.5 mg/dL (0.2-1.3); BLOOD UREA NITROGEN 9 mg/dL (7-20); CALCIUM 9.6 mg/dL (8.4-10.2); CARBON DIOXIDE 26 mmol/L (22-30); CHLORIDE 101 mmol/L (98-107); GLUCOSE 144 mg/dL (75-110)
[2020-04-19] MEDS ORDERED: ONDANSETRON HCL INJ/PF 4 MG/2 ML SDV IV ONE (15:45)
[2020-04-19] MEDS ORDERED: MORPHINE SULFATE 10 MG/ML INJ IV ONE (15:45)
--- NOTE | 2020-04-19 15:49 | ER Document Report ---
ED GI/ - General Chief Complaint: Abdominal Pain Stated Complaint: ABDOMINAL/PELVIC PAIN Time Seen by Provider: 04/19/20 14:12 Primary Care Provider: TORSTEN TEJEDA MD [ACTIVE STAFF] - Follow up as needed BUNNY GUERRIER MD [ACTIVE STAFF] - Follow up as needed CELINA DE LA ROSA MD [Primary Care Provider] - Follow up as needed Mode of Arrival: Ambulatory Information source: Patient Notes: 30-year-old female past medical history significant for ovarian cysts presents to the emergency room complaining of right lower quadrant and pelvic pain for the past week. Describes it as a cramping type of pain. Complains of nausea but no vomiting. States she also has some lower back pain. Denies any urinary symptoms. Denies any vaginal discharge. Denies any trauma or injury. States she has been taking ibuprofen and Motrin without relief. States pain is worse with ambulation. Denies any heavy lifting pushing pulling or tugging. Denies any vaginal bleeding. TRAVEL OUTSIDE OF THE [place] IN LAST 30 DAYS: No - Related Data Allergies/Adverse Reactions: No Known Allergies Allergy (Verified 04/19/20 14:11) Past Medical History - General Information source: Patient - Social History Smoking Status: Never Smoker Chew tobacco use (# tins/day): No Frequency of alcohol use: Occasional Drug Abuse: None Family History: Reviewed & Not Pertinent Renal/ Medical History: Denies: Hx Peritoneal Dialysis Past Surgical History: Reports: Hx Appendectomy - Immunizations Hx Diphtheria, Pertussis, Tetanus Vaccination: Yes Review of Systems - Review of Systems Constitutional: No symptoms reported EENT: No symptoms reported Cardiovascular: No symptoms reported Respiratory: No symptoms reported Gastrointestinal: Abdominal pain, Nausea. denies: Diarrhea, Vomiting, Constipation Genitourinary: No symptoms reported Female Genitourinary: No symptoms reported Musculoskeletal: Back pain Skin: No symptoms reported Neurological/Psychological: No symptoms reported -: Yes All other systems reviewed and negative Physical Exam - Vital signs Vitals: Temp Pulse Resp BP Pulse Ox 98.2 F 83 20 121/74 99 04/19/20 14:05 04/19/20 14:05 04/19/20 14:05 04/19/20 14:05 04/19/20 14:05 - General General appearance: Appears well, Alert In distress: Mild - Respiratory Respiratory status: No respiratory distress Chest status: Nontender Breath sounds: Normal Chest palpation: Normal - Cardiovascular Rhythm: Regular Heart sounds: Normal auscultation Murmur: No - Abdominal Inspection: Normal Distension: No distension Bowel sounds: Normal Tenderness: Tender - Generalized tenderness on palpation. No guarding, no rebound. Organomegaly: No organomegaly - Back Back: Normal, Nontender. No: CVA tenderness, Vertebra tenderness - Neurological Neuro grossly intact: Yes Cognition: Normal Orientation: AAOx4 Dunning Coma Scale Eye Opening: Spontaneous Dunning Coma Scale Verbal: Oriented Dunning Coma Scale Motor: Obeys Commands Sarai Coma Scale Total: 15 Speech: Normal Motor strength normal: LUE, RUE, LLE, RLE Sensory: Normal - Skin Skin Temperature: Warm Skin Moisture: Dry Skin Color: Normal Course - Re-evaluation Re-evalutation: 04/19/20 15:48 Reviewed lab and ultrasound results with patient. Patient with persistent pain. Will medicate get CT abdomen and pelvis with IV contrast. Patient is agreeable to additional testing. 04/19/20 17:26 Patient is currently resting comfortably. She is pain-free on exam. Unable to appreciate an umbilical hernia on exam. Reviewed CAT scan results with patient. Discussed questionable ovarian cyst that was noted on the CT that was not commented on on ultrasound. Also discussed the umbilical hernia. 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 She will be provided with on-call physicians. Continue with Tylenol and or Motrin as needed for pain. Patient was given strict return to the emergency room guidelines. Return for any new or worsening symptoms. All questions were answered. Patient verbalized understanding and agrees with plan of care. 04/19/20 17:28 - Vital Signs Vital signs: Temp Pulse Resp BP Pulse Ox 98.3 F 83 20 115/74 98 04/19/20 17:37 04/19/20 14:05 04/19/20 14:05 04/19/20 17:34 04/19/20 17:34 - Laboratory Result Diagrams: 04/19/20 14:24 04/19/20 14:24 Laboratory results interpreted by me: 04/19/20 14:24 Glucose 144 H - Diagnostic Test Radiology reviewed: Reports reviewed Discharge - Discharge Clinical Impression: Right ovarian cyst Umbilical hernia Qualifiers: Obstruction and gangrene presence: without obstruction or gangrene Qualified Code(s): K42.9 - Umbilical hernia without obstruction or gangrene Condition: Stable Disposition: HOME, SELF-CARE Instructions: Ovarian Cyst ([facility]), Umbilical Hernia ([facility]) Additional Instructions: Tylenol and or Motrin as needed for pain. Follow-up with ACCOUNT SUPPORT REP for the ovarian cyst. Follow-up with general surgery for umbilical hernia. Return to emergency room for any new or worsening symptoms. Forms: Return to Work Referrals: CELINA DE LA ROSA MD [Primary Care Provider] - Follow up as needed TORSTEN TEJEDA MD [ACTIVE STAFF] - Follow up as needed BUNNY GUERRIER MD [ACTIVE STAFF] - Follow up as needed
--- NOTE | 2020-04-19 17:18 | RADIOLOGY REPORT (SQ) ---
EXAM DESCRIPTION: CT ABD/PELVIS WITH IV ONLY IMAGES COMPLETED DATE/TIME: 04/19/2020 4:48 pm REASON FOR STUDY: abdominal pain COMPARISON: Pelvic ultrasound 04/19/2020. TECHNIQUE: CT scan of the abdomen and pelvis performed using helical scanning technique with dynamic intravenous contrast injection. No oral contrast. Images reviewed with lung, soft tissue, and bone windows. Reconstructed coronal and sagittal MPR images reviewed. Delayed images for evaluation of the urinary system also acquired. All images stored on PACS. All CT scanners at this facility use dose modulation, iterative reconstruction, and/or weight based d osing when appropriate to reduce radiation dose to as low as reasonably achievable (ALARA). [facility]: Dose Right [facility]: CareDose [facility]: Dose Right [facility]: Teradose 4D [facility]: Dayjet CONTRAST TYPE AND DOSE: contrast/concentration: Isovue 350.00 mmol/ml; Total Contrast Delivered: 78. 0 ml; Total Saline Delivered: 67.0 ml RENAL FUNCTION: Creatinine 0.72 RADIATION DOSE: CT Rad equipment meets quality standard of care and radiation dose reduction techniq ues were employed. CTDIvol: 5.8 - 7.4 mGy. DLP: 669 mGy-cm.. LIMITATIONS: None. FINDINGS: LOWER CHEST: No consolidation or pleural effusion. LIVER: Normal size. No masses. No dilated ducts. SPLEEN: Normal size. No focal lesions. PANCREAS: No significant calcifications. No adjacent inflammation or peripancreatic fluid collections . Pancreatic duct not dilated. GALLBLADDER: No identified stones by CT criteria. No inflammatory changes to suggest cholecystitis. ADRENAL GLANDS: No significant masses or asymmetry. RIGHT KIDNEY AND URETER: No solid masses. No significant calcifications. No hydronephrosis or hyd roureter. LEFT KIDNEY AND URETER: No solid masses. No significant calcifications. No hydronephrosis or hydr oureter. AORTA AND VESSELS: No abdominal aortic aneurysm or acute dissection. RETROPERITONEUM: No retroperitoneal adenopathy, hemorrhage or masses. BOWEL AND PERITONEAL CAVITY: No dilated bowel loops or focal inflammatory changes. No free fluid or free air. APPENDIX: Surgically absent. PELVIS: The uterus is present. 2.2 cm peripherally enhancing area at the right ovary probably repres ents a functional cyst. No free fluid. Partially distended bladder. ABDOMINAL WALL: There is a small fat containing umbilical hernia. BONES: No acute findings. IMPRESSION: No acute findings in the abdomen or pelvis. TECHNICAL DOCUMENTATION: JOB ID: [id number] Quality ID # [id number]: Final reports with documentation of one or more dose reduction techniques (e.g., Au tomated exposure control, adjustment of the mA and/or kV according to patient size, use of iterative reconstruction technique) 2010 [employer]- All Rights Reserved Reading location - IP/workstation name: [email or web address]
[2020-04-19 17:39] VITALS: BP 115/74
== END 2020-04-19 17:37 | disposition home or self-care (01) ==
LOC: ER 13:59
DX: N83.201 Unspecified ovarian cyst, right side (principal); K42.9 Umbilical hernia without obstruction or gangrene; R10.31 Right lower quadrant pain; R10.2 Pelvic and perineal pain; R11.0 Nausea; M54.5 Low back pain
CPT/HCPCS: 99285; 96374; 96375; 36415; 87086; 83690; 84703; 85025; 80053; 81001; 76830; 74177; J2270; J2405

== ENCOUNTER 2020-05-10 09:36 | Emergency (ER) | payer OTHER ==
[2020-05-10 10:31] LABS: APPEARANCE,URINE CLEAR; BILIRUBIN,URINE NEGATIVE (NEGATIVE); COLOR,URINE STRAW; GLUCOSE, URINE NEGATIVE (NEGATIVE); KETONES,URINE NEGATIVE (NEGATIVE); PROTEIN,URINE NEGATIVE (NEGATIVE); URINE SPECIFIC GRAVITY 1.004; UROBILINOGEN,URINE NEGATIVE mg/dL (<2.0)
--- NOTE | 2020-05-10 10:40 | ER Document Report ---
HPI - HPI Time Seen by Provider: 05/10/20 10:26 Pain Level: 3 Notes: Otherwise healthy 30-year-old female presenting with dysuria, urinary frequency and urgency for the last 3 days. Denies nausea, vomiting, fever chills. Denies back pain or abdominal pain. Has had urinary tract infections in the past and this feels similar. - ROS Systems Reviewed and Negative: Yes All other systems reviewed and negative - URINARY Urinary: REPORTS: Dysuria, Urgency, Frequency - REPRODUCTIVE Reproductive: DENIES: : Past Medical History - General Information source: Patient - Social History Smoking Status: Never Smoker Chew tobacco use (# tins/day): No Frequency of alcohol use: Occasional Drug Abuse: None Family History: Reviewed & Not Pertinent - Medical History Medical History: Negative Renal/ Medical History: Denies: Hx Peritoneal Dialysis Past Surgical History: Reports: Hx Appendectomy - Immunizations Hx Diphtheria, Pertussis, Tetanus Vaccination: Yes Vertical Provider Document - CONSTITUTIONAL Notes: PHYSICAL EXAMINATION: GENERAL: Well-appearing, well-nourished and in no acute distress. HEAD: Atraumatic, normocephalic. EYES: Pupils equal round and reactive to light, extraocular movements intact, conjunctiva are normal. ENT: Nares patent, oropharynx clear without exudates. Moist mucous membranes. NECK: Normal range of motion, supple without lymphadenopathy LUNGS: Breath sounds clear to auscultation bilaterally and equal. No wheezes rales or rhonchi. HEART: Regular rate and rhythm without murmurs ABDOMEN: Soft, nontender, nondistended abdomen. No guarding, no rebound. No masses appreciated. Female : deferred Musculoskeletal: Normal range of motion, no pitting or edema. No cyanosis. No CVA tenderness NEUROLOGICAL: Cranial nerves grossly intact. Normal speech, normal gait. Normal sensory, motor exams PSYCH: Normal mood, normal affect. SKIN: Warm, Dry, normal turgor, no rashes or lesions noted. - INFECTION CONTROL TRAVEL OUTSIDE OF THE [place] IN LAST 30 DAYS: No Course - Re-evaluation Re-evalutation: Patient appears well, nontoxic, vital signs within normal limits. Urinary tract infection evidenced on the urinalysis. Urine culture pending. Will start patient on antibiotics and Pyridium. Patient understands ED return precautions. - Vital Signs Vital signs: Temp Pulse Resp BP Pulse Ox 98.4 F 67 14 122/77 98 11/08/20 09:40 05/10/20 09:40 05/10/20 09:40 05/10/20 09:40 05/10/20 09:40 - Laboratory Laboratory results interpreted by me: 05/10/20 09:49 Leukocyte Esterase Rfl SMALL H Discharge - Discharge Clinical Impression: Urinary tract infection Qualifiers: Urinary tract infection type: site unspecified Hematuria presence: without hematuria Qualified Code(s): N39.0 - Urinary tract infection, site not specified Condition: Stable Disposition: HOME, SELF-CARE Additional Instructions: Your urine shows findings consistent with a urinary tract infection. A urine culture is pending, someone will call you if there is any abnormality with this. Please take all the antibiotics as directed even if your symptoms have improved. Please follow-up with your primary care physician as needed. Return to emergency room if you develop fever >101F, persistent vomiting, become lethargic, have severe pain in your sides, or any other symptoms that are concerning to you. Prescriptions: Cephalexin [Keflex] 500 mg PO BID #14 capsule Phenazopyridine HCl [Pyridium 100 Mg Tablet] 100 mg PO TID #6 tablet Forms: Return to Work Referrals: CELINA DE LA ROSA MD [Primary Care Provider] - Follow up as needed
[2020-05-10 10:51] VITALS: BP 115/76
== END 2020-05-10 10:51 | disposition home or self-care (01) ==
LOC: ER 09:36
DX: N39.0 Urinary tract infection, site not specified (principal)
CPT/HCPCS: 36415; 81001; 87086; 99283

== ENCOUNTER 2020-06-02 11:18 | Emergency (ER) | payer OTHER ==
[2020-06-02 11:26] VITALS: BP 123/74
[2020-06-02] MEDS ORDERED: IBUPROFEN 600 MG TABLET PO ONE (11:50)
--- NOTE | 2020-06-02 11:54 | ER Document Report ---
HPI - HPI Time Seen by Provider: 06/02/20 11:45 Notes: 30-year-old female presents to emergency room today for left fourth finger pain after accidentally was stuck in a keychain last night. Reports pain is 3 out of 5, throbbing and reports some numbness to her finger. Tried ibuprofen and Tyl enol last night without relief. Has not tried any icing or heat. Worse with movement, better with rest. Last menstrual cycle 05/31/2020. Denies any other area of injury or pain. Denies fevers, chills, chest pain,palpitations, shortness of breath, dyspnea, nausea, vomiting, diarrhea, abdominal pain, hematuria, weakness, bowel or bladder dysfunction, saddle anesthesia, numbness or tingling in bilateral upper or lower extremities equally, muscle paralysis, weakness in bilateral upper or lower extremities equally or rash. - REPRODUCTIVE Reproductive: DENIES: : Past Medical History - General Information source: Patient - Social History Smoking Status: Unknown if Ever Smoked Family History: Reviewed & Not Pertinent Renal/ Medical History: Denies: Hx Peritoneal Dialysis Past Surgical History: Reports: Hx Appendectomy - Immunizations Hx Diphtheria, Pertussis, Tetanus Vaccination: Yes Vertical Provider Document - CONSTITUTIONAL Agree With Documented VS: Yes Exam Limitations: No Limitations General Appearance: WD/WN Notes: MEDICATIONS: I agree with the patient medications as charted by the RN. ALLERGIES: I agree with the allergies as charted by the RN. PAST MEDICAL HISTORY/PAST SURGICAL HISTORY: Reviewed and agree as charted by RN. SOCIAL HISTORY: Reviewed and agree as charted by RN. FAMILY HISTORY: No significant familial comorbid conditions directly related to patient complaint EXAM: Reviewed vital signs as charted by RN. PHYSICAL EXAMINATION: reviewed vital signs by RN GENERAL: Well-appearing, well-nourished and in no acute distress. HEAD: Atraumatic, normocephalic. EYES: Pupils equal round and reactive to light, extraocular movements intact, conjunctiva are normal. ENT: Nares patent, oropharynx clear without exudates. Moist mucous membranes. NECK: Normal range of motion, supple without lymphadenopathy LUNGS: Breath sounds clear to auscultation bilaterally and equal. No wheezes rales or rhonchi. HEART: Regular rate and rhythm without murmurs ABDOMEN: Soft, nontender, nondistended abdomen. No guarding, no rebound. No masses appreciated. Female : deferred Musculoskeletal: Normal range of motion, no pitting or edema. No cyanosis. Pain to left 4th phalange on volar aspect. no pain to wrist with flexion, extension, inversion, eversion of wrist. digits in right and left with full aprom.. 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 Snuffbox tenderness negative on left. radial pulses + 2 BUE equally. Negative kanavels sign. No open wounds or drainage from wrist. No vascular compromise.No body crepitus. noted left 4th phalange with focal area of TTP at DIP. no pain with opposition, flexion, extension, abduction and adduction on left with other fingers. Motor and sensory function of ulnar, radial, medial nerves intact bilaterally and equally. strength 5/5 in BUE equally. NEUROLOGICAL: Cranial nerves grossly intact. Normal speech, normal gait. Normal sensory, motor exams PSYCH: Normal mood, normal affect. SKIN: Warm, Dry, normal turgor, no rashes or lesions noted. - INFECTION CONTROL TRAVEL OUTSIDE OF THE [place] IN LAST 30 DAYS: No Course - Re-evaluation Re-evalutation: 06/02/20 11:54 Afebrile vital stable no distress. Nurses notes reviewed. X-ray of finger shows a questionable tuft fracture of the fourth phalange. Consent by patient given to place finger splint,. cms intact, sensory motor function intact in bilateral upper extremities prior to splint application fiberglass splint placed without incident. cms intact 20 minutes after splint application. Splint is in good alignment. Bilateral upper extremities with motor and sensory function intact 20 minutes after application. Pt stated that splint felt comfortable. Vies to follow-up with sales order specialist within the next 24 to 48 hours. Alternate chain Tylenol and ibuprofen for pain control. Keep elevated above level of heart for swelling and pain control. Apply ice 20 minutes on 20 minutes off several times a day and then switch over to heat in same fashion. after performing a Medical Screening Examination, I estimate there is LOW risk for OPEN FRACTURE, COMPARTMENT SYNDROME, DEEP VENOUS THROMBOSIS, ACUTE TENDON RUPTURE, or NEUROVASCULAR INJURY thus I consider the discharge disposition reasonable. I have reevaluated this patient multiple times and no significant life threatening changes are noted. The patient and I have discussed the diagnosis and risks, and we agree with discharging home to closely follow-up with their primary doctor or the referral orthopedist with the understanding that symptoms and presentations can change. We also discussed returning to the Emergency Department immediately if new or worsening symptoms occur. We have discussed the symptoms which are most concerning (e.g., changing or worsening pain, numbness, weakness) that necessitate immediate return - Vital Signs Vital signs: Temp Pulse Resp BP Pulse Ox 99.0 F 68 16 123/74 98 06/02/20 11:23 06/02/20 11:23 06/02/20 11:23 06/02/20 11:23 06/02/20 11:23 Discharge - Discharge Clinical Impression: left 4th finger pain, Finger fracture, left Condition: Stable Disposition: HOME, SELF-CARE Instructions: Fractured Finger ([facility]) Additional Instructions: Your x-ray does show a questionable fracture of your left fourth finger. You have been placed in a finger splint. It is advised that you follow-up with sales order specialist within the next 24 to 48 hours for reevaluation. Please alternate between Tylenol and ibuprofen for pain control. Referral has been given to the sales order specialist. Return immediately for any new or worsening symptoms. Follow up with primary care provider, call tomorrow to make followup appointment. Forms: Return to Work Referrals: OLMAN GREWAL DO [Primary Care Provider] - Follow up as needed SHIRA DUBOSE MD [ACTIVE STAFF] - Follow up as needed
--- NOTE | 2020-06-02 12:13 | RADIOLOGY REPORT (SQ) ---
EXAM DESCRIPTION: FINGER LEFT IMAGES COMPLETED DATE/TIME: 06/02/2020 12:01 pm REASON FOR STUDY: 4th finger, stuck on keychain, +bruising. COMPARISON: None. NUMBER OF VIEWS: Three views. TECHNIQUE: AP, lateral, and oblique images acquired of the left fourth finger. LIMITATIONS: None. FINDINGS: MINERALIZATION: Normal. BONES: Cortical irregularity along the dorsal base of the distal 4th phalanx seen on one view only. SOFT TISSUES: No foreign body. OTHER: No other significant finding. IMPRESSION: Questionable fracture extensor process distal 4th phalanx. Clinical correlation is need ed. TECHNICAL DOCUMENTATION: JOB ID: [id number] 2010 [facility]- All Rights Reserved Reading location - IP/workstation name: [email or web address]
== END 2020-06-02 12:43 | disposition home or self-care (01) ==
LOC: ER 11:18
DX: S62.635A Displaced fracture of distal phalanx of left ring finger, initial encounter for closed fracture (principal); W49.04XA Ring or other jewelry causing external constriction, initial encounter
CPT/HCPCS: 99283

== ENCOUNTER 2020-07-22 10:24 | Emergency (ER) | payer OTHER ==
--- NOTE | 2020-07-22 11:05 | ER Document Report ---
ED Medical Screen (RME) - General Chief Complaint: Headache Stated Complaint: HEADACHE Time Seen by Provider: 07/22/20 10:59 Primary Care Provider: ESTEFANIA JONES FNP-BC [Primary Care Provider] - Follow up as needed Notes: Patient is a 30-year-old female presents emergency department with a chief complaint of headache. Patient reports she was diagnosed with Covid on July 06. Patient reports she has been battling intermittent headaches since that time. Patient reports her headaches are generally all over and sometimes focused on the right side. Patient does report visual changes at times. Has been taking multiple [id number] medications without relief. Reports nausea without vomiting. Denies fever, denies neck pain. TRAVEL OUTSIDE OF THE [place] IN LAST 30 DAYS: No - Related Data Allergies/Adverse Reactions: No Known Allergies Allergy (Verified 06/02/20 11:46) Home Medications: vitamins. valtrex Past Medical History - Social History Frequency of alcohol use: None Drug Abuse: None Renal/ Medical History: Denies: Hx Peritoneal Dialysis Past Surgical History: Reports: Hx Appendectomy - Immunizations Hx Diphtheria, Pertussis, Tetanus Vaccination: Yes Physical Exam - Vital signs Vitals: Temp Pulse Resp BP Pulse Ox 98.8 F 102 H 16 132/95 H 99 07/22/20 10:07/22/20 10:07/22/20 10:07/22/20 10:07/22/20 10:28 Course - Re-evaluation Re-evalutation: 07/22/20 11:04 Patient no acute distress and alert and oriented x4. Will obtain basic labs and a urine hCG. Once hCG is negative I will place orders for medications to treat headache. Patient is aware of this. Patient reports she did have 2 menstrual cycles over the past month which is not normal for her. Last sexual intercourse was last week. I have greeted and performed a rapid initial assessment of this patient. A comprehensive ED assessment and evaluation of the patient, analysis of test results and completion of the medical decision making process will be conducted by additional ED providers. - Vital Signs Vital signs: Temp Pulse Resp BP Pulse Ox 98.8 F 102 H 16 132/95 H 99 07/22/20 10:07/22/20 10:07/22/20 10:07/22/20 10:07/22/20 10:28 Doctor's Discharge - Discharge Referrals: ESTEFANIA JONES, NEWS TECHNICAL DIRECTOR-BC [Primary Care Provider] - Follow up as needed
[2020-07-22 11:32] LABS: ABSOLUTE EOSINOPHILS # (AUTO) 0.2 10^3/uL (0.0-0.6); ABSOLUTE LYMPHOCYTES (AUTO) 1.4 10^3/uL (0.5-4.7); ABSOLUTE MONOCYTES (AUTO) 0.7 10^3/uL (0.1-1.4); ABSOLUTE NEUT (AUTO) 4.3 10^3/uL (1.7-8.2); BASOPHILS % (AUTO) 0.6 % (0-2); EOSINOPHILS % (AUTO) 2.3 % (0-6); HEMATOCRIT 41.2 % (36.0-47.0); HEMOGLOBIN 14.2 g/dL (12.0-15.5); LYMPHOCYTES % (AUTO) 20.9 % (13-45); MEAN CORPUSCULAR HEMOGLOBIN 31.3 pg (27.0-33.4); MEAN CORPUSCULAR HGB CONC 34.6 g/dL (32.0-36.0); MEAN CORPUSCULAR VOLUME 90 fl (80-97); MONOCYTES % (AUTO) 10.8 % (3-13); PLATELET COUNT 409 10^3/uL (150-450); RED BLOOD COUNT 4.56 10^6/uL (3.72-5.28); RED CELL DISTRIBUTION WIDTH 13.2 % (11.5-14.0); SEGMENTED NEUTROPHILS % (AUTO) 65.4 % (42-78); TOTAL CELLS COUNTED % (AUTO) 100 %; WHITE BLOOD COUNT 6.5 10^3/uL (4.0-10.5)
[2020-07-22 11:50] LABS: ALBUMIN 4.3 g/dL (3.5-5.0); ALKALINE PHOSPHATASE 47 U/L (38-126); ANION GAP 7 (5-19); ASPARTATE AMINO TRANSFERASE 35 U/L (14-36); BILIRUBIN,DIRECT 0.1 mg/dL (0.0-0.4); BILIRUBIN,TOTAL 0.5 mg/dL (0.2-1.3); BLOOD UREA NITROGEN 9 mg/dL (7-20); CARBON DIOXIDE 31 mmol/L (22-30); CHLORIDE 103 mmol/L (98-107); GLUCOSE 89 mg/dL (75-110); TOTAL PROTEIN 7.8 g/dL (6.3-8.2)
[2020-07-22] MEDS ORDERED: METOCLOPRAMIDE HCL INJ/PF 10 MG/2 ML SDV IV ONE ×2 (11:53→14:30)
[2020-07-22] MEDS ORDERED: KETOROLAC TROMETHAMINE INJ/PF 30 MG/1 ML SDV IV ONE ×2 (11:53→14:30)
[2020-07-22] MEDS ORDERED: DIPHENHYDRAMINE HCL 50 MG/ML VIAL IV ONE ×2 (11:53→14:30)
[2020-07-22] MEDS ORDERED: NORMAL SALINE 1000 ML 1,000 ML IV ONE (14:17)
--- NOTE | 2020-07-22 14:46 | ER Document Report ---
ED Headache - General Chief Complaint: Headache Stated Complaint: HEADACHE Time Seen by Provider: 07/22/20 10:59 Primary Care Provider: ESTEFANIA JONES FNP-BC [Primary Care Provider] - Follow up in 3-5 days TRAVEL OUTSIDE OF THE [place] IN LAST 30 DAYS: No - HPI Notes: Patient is a 30-year-old female with no significant past medical history who presents with a headache. Patient was diagnosed with Covid in early July. She states that she has been isolating at home. She has had a headache since then. It seemed to get better and then got worse several days ago. Patient states she talked to her PCP about this and was given antibiotics and prednisone. That did seem to help her headache. She states that several days ago it worsened. She states it feels like a migraine. She has throbbing pain. It was over her right head yesterday but is now throughout her head. She denies any neck pain. No fevers or chills. She still has a cough left over. She has had some nausea with the headache. No vomiting, abdominal pain, or diarrhea. She has had headaches before. She has been taking Tylenol and ibuprofen with minimal relief. She states that when her massages her shoulders that makes her headache worse. - Related Data Allergies/Adverse Reactions: No Known Allergies Allergy (Verified 06/02/20 11:46) Home Medications: vitamins. valtrex Past Medical History - General Information source: Patient - Social History Smoking Status: Never Smoker Frequency of alcohol use: None Drug Abuse: None Family History: Reviewed & Not Pertinent Renal/ Medical History: Denies: Hx Peritoneal Dialysis Past Surgical History: Reports: Hx Appendectomy - Immunizations Hx Diphtheria, Pertussis, Tetanus Vaccination: Yes Review of Systems - Review of Systems Notes: CONSTITUTIONAL: No fever, fatigue or weight loss. SKIN: No rash. HENT: No congestion, ear pain, or sore throat. CARDIOVASCULAR: No chest pain or edema. RESPIRATORY: No shortness of breath, congestion, or wheezing. Cough present. GASTROINTESTINAL: No abdominal pain, vomiting, bloody stools or diarrhea. Nausea present. GENITOURINARY: No dysuria. MUSCULOSKELETAL: No joint pain or swelling. LYMPHATIC: No swollen glands. NEUROLOGIC: No seizures. No focal weakness or sensory changes. Positive for headache. HEMATOLOGIC: No unusual bruising or bleeding. PSYCHIATRIC: No depression or anxiety. Physical Exam - Vital signs Vitals: Temp Pulse Resp BP Pulse Ox 98.8 F 102 H 16 132/95 H 99 07/22/20 10:28 07/22/20 10:28 07/22/20 10:28 07/22/20 10:28 07/22/20 10:28 - General General appearance: Appears well In distress: None Notes: VITAL SIGNS: Within normal limits. GENERAL: No acute distress, non-toxic appearance. HEAD: Normal with no signs of head trauma. EYES: EOMI, conjunctiva normal, no discharge. EARS: Hearing grossly intact. NOSE: Normal. NECK: Normal range of motion, no tenderness, supple, no lymphadenopathy, No adenopathy, no JVD. CHEST: Clear breath sounds bilaterally. No wheezes, rales, or rhonchi. CARDIAC: Regular rate and rhythm. VASCULAR: No Edema. ABDOMEN: Normal and soft with no tenderness. GENITOURINARY: Normal, No tenderness LYMPATHTIC: No lymphadenopathy noted. MUSCULOSKELETAL: Good range of motion of all major joints. Extremities without clubbing, cyanosis or edema. NEUROLOGICAL: Alert and oriented x 3. No focal sensory or strength deficits. Speech normal. Follows commands appropriately. PSYCHIATRIC: Normal Affect, judgement and mood. SKIN: Normal appearance with no rashes or lesions. Course - Re-evaluation Re-evalutation: 07/22/20 14:45 Patient appears well on exam. She has no focal neurological deficits. Patient is speaking on the phone when I initially entered the room and in no acute distress. I do not believe she requires any advanced imaging. Her lab work is unremarkable. Patient is describing migraine type symptoms versus a tension h eadache as it is worse with palpation of her trapezius muscles. Patient will be treated with a migraine cocktail and reassessed. Patient states she is improved after migraine cocktail. I educated patient on staying hydrated, eating regular meals, getting rest, avoiding straining her eyes. Patient was told to follow-up with her PCP. She was given strict return precautions. Patient is very agr eeable to this plan. 07/22/20 20:46 07/22/20 20:46 - Vital Signs Vital signs: Temp Pulse Resp BP Pulse Ox 98.1 F 72 16 109/58 L 100 07/22/20 16:06 07/22/20 16:06 07/22/20 16:06 07/22/20 16:06 07/22/20 16:06 - Laboratory Results Result Diagrams: 07/22/20 11:15 07/22/20 11:15 Laboratory Results Interpreted: 07/22/20 11:15 Carbon Dioxide 31 H ALT 42 H Critical Laboratory Results Reviewed: No Critical Results - Radiology Results Critical Radiology Results Reviewed: No Critical Results Discharge - Discharge Clinical Impression: Headache Qualifiers: Headache type: unspecified Headache chronicity pattern: acute headache Intractability: not intractable Qualified Code(s): R51.9 - Headache, unspecified Condition: Stable Disposition: HOME, SELF-CARE Instructions: Headache ([facility]) Additional Instructions: Your work-up today is reassuring. Please make sure you are getting rest. Avoid straining your eyes today. Make sure you are drinking plenty of fluids and eating regular meals. Please follow-up with your family doctor. Please return to the ER for any return of symptoms, nausea, vomiting, any other concerns. Referrals: ESTEFANIA JONES, SENIOR BUDGET ANALYST-BC [Primary Care Provider] - Follow up in 3-5 days
[2020-07-22 16:07] VITALS: BP 109/58
== END 2020-07-22 16:06 | disposition home or self-care (01) ==
LOC: ER 10:24
DX: R51.9 Headache, unspecified (principal); R05 Cough; R11.0 Nausea; Z79.899 Other long term (current) drug therapy
CPT/HCPCS: 99284; 96361; 96374; 96375; 36415; 85025; 81025; 80053; J1200; J1885; J2765; J7030